=== PATIENT | female | born 1975 | race Caucasian/White ===

== ENCOUNTER 2021-11-28 14:26 | Outpatient (CLI) | payer OTHER, SELFPAY | END 2021-11-28 14:27 | disposition home or self-care (01) | LOC: LKVREF 14:34 | PROVIDERS: PCP Emergency Medicine; Visit Provider Physician Assistant Medical | DX: N92.6 Irregular menstruation, unspecified (principal); R51.9 Headache, unspecified | CPT/HCPCS: 84443 ==

== ENCOUNTER 2021-11-30 12:48 | Outpatient (CLI) | payer OTHER, SELFPAY ==
--- NOTE | 2021-11-30 13:00 | CRLHL7_ITS ---
For Patients: As a result of the Century Cures Act, medical imaging exams and procedure reports are released immediately into your electronic medical record. You may view this report before your referring provider. If you have questions, please contact your health care provider. INDICATION: S/P ENDO ABLATION [id number], NOW HEAVY VAGINAL BLEEDING COMPARISON: none TECHNIQUE: 2D mars scale and color Doppler images were acquired of the pelvis using a transabdominal and transvaginal approach. FINDINGS: Sonographic images demonstrate a normal size and smooth outer contour of the uterus. Uterus measures 10.4 cm in length by 5.7 cm in AP diameter by 5.1 cm in transverse dimension. The myometrium has a heterogeneous echotexture. 2 centimeter cervical nabothian cyst is present. Anterior intramural leiomyoma noted measuring 1.6 x 1.2 x 1.5 cm. The endometrial lining appears heterogeneous and measures 6 mm in composite thickness. The right ovary measures 3.0 x 2.1 x 2.1 cm in size and the left ovary measures 3.2 x 1.8 x 1.9 cm. The ovaries demonstrate normal arterial and venous blood flow on color Doppler analysis. There are no suspicious fluid collections within the cul-de-sac. Incidental simple cyst left ovary measuring 1.6 x 1.2 x 1.4 cm. IMPRESSION: Endometrial thickness 6 millimeters. Endometrial morphology is slightly heterogeneous. No endometrial fluid. Small anterior intramural fibroid measuring 1.6 cm. Dictated by Porter Short MD @ 11/30/2021 3:52:27 PM (Electronically Signed)
== END 2021-11-30 12:49 | disposition home or self-care (01) ==
LOC: US 12:49
PROVIDERS: PCP Emergency Medicine; Visit Provider Physician Assistant Medical
DX: N93.9 Abnormal uterine and vaginal bleeding, unspecified (principal); R93.89 Abnormal findings on diagnostic imaging of other specified body structures; D25.1 Intramural leiomyoma of uterus
CPT/HCPCS: 76830; 76856

== ENCOUNTER 2021-12-09 09:34 | Outpatient (CLI) | payer OTHER, SELFPAY ==
[2021-12-09 11:05] LABS: Creatinine* 0.7 mg/dL (0.5-1.5); Estimated Glomerular Filt Rate 107 ml/min
[2021-12-09 11:06] LABS: Alanine Aminotransferase* 80 U/L (4-35); Aspartate Amino Transferase* 66 U/L (12-35); Blood Urea Nitrogen* 14 mg/dL (5-24); Uric Acid* 5.5 mg/dL (2.2-8.4)
[2021-12-10 18:34] LABS: Follicle Stimulating Hormone 37.3 IU/L
== END 2021-12-09 09:35 | disposition home or self-care (01) ==
PROVIDERS: PCP Emergency Medicine; Visit Provider Obstetrics & Gynecology
DX: N93.9 Abnormal uterine and vaginal bleeding, unspecified (principal); R94.5 Abnormal results of liver function studies; R79.89 Other specified abnormal findings of blood chemistry; N89.8 Other specified noninflammatory disorders of vagina
CPT/HCPCS: 82565; 83001; 84450; 84460; 84520; 84550

== ENCOUNTER 2022-01-31 08:35 | Outpatient (CLI) | payer OTHER, SELFPAY ==
[2022-01-31 13:52] LABS: Albumin* 4.5 g/dL (3.3-5.0)
[2022-01-31 13:55] LABS: Aspartate Amino Transferase* 29 U/L (12-35); Bilirubin Direct* 0.3 mg/dL (0.0-0.5); Bilirubin Total* 0.8 mg/dL (0.1-1.5); Total Protein* 7.2 g/dL (6.0-8.3)
[2022-01-31 13:56] LABS: Alanine Aminotransferase* 39 U/L (4-35); Alkaline Phosphatase* 68 U/L (40-150)
== END 2022-01-31 08:36 | disposition home or self-care (01) ==
LOC: LKVREF 08:37
PROVIDERS: PCP Emergency Medicine; Visit Provider Family Medicine
DX: Z01.818 Encounter for other preprocedural examination (principal); E55.9 Vitamin D deficiency, unspecified; R79.89 Other specified abnormal findings of blood chemistry
CPT/HCPCS: 80076

== ENCOUNTER 2022-02-09 06:53 | Day surgery (SDC) | payer OTHER, SELFPAY ==
[2022-02-09] VITALS (26 sets, daily range): BP systolic 106–126; BP diastolic 62–85; PULSE 70–86; RESP 16; TEMP 36.2–36.6; O2SAT 85–100; BMI 25.5
[2022-02-09 07:15] LABS: Ur HCG Qualitative* Negative (Negative)
[2022-02-09] MEDS: SODIUM CHLORIDE 0.9 % (FLUSH) 10 ML SYRINGE IVF (07:30)
[2022-02-09] MEDS: LACTATED RINGERS 1000 ML 1,000 ML 100 ML IV (07:30)
--- NOTE | 2022-02-09 07:43 | SUR.PREOP ---
LAB HERE TO DRAW TYPE & SCREEN.
[2022-02-09] MEDS: BUPIVACAINE 0.25% 30 ML INJECTION (10:23)
--- NOTE | 2022-02-09 11:10 | W.ANESCHARGE ---
Anesthesia Charges Start Date/Time Anesthesia Start Date: 02/09/22 Anesthesia Start Time: 08:32 Stop Date/Time Anesthesia Stop Date: 02/09/22 Anesthesia Stop Time: 11:10 Summary Emergency: No
--- NOTE | 2022-02-09 11:17 | P.GYNPRC_ITS ---
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 On exam under anesthesia, cervix was normal in appearance, deviated anteriorly. Bimanual exam revealed retroverted and mobile uterus without any palpable adnexal masses. 2. Upon laparoscopy, survey of the upper abdomen revealed a normal appearance to the inferior edge of the liver, gallbladder and stomach. Bowels were grossly normal appearance, as was the appendix. Survey of the pelvis revealed the uterus to be retroverted. There was a perforation site from the hysteroscopy, performed prior to laparoscopy, noted along the right lower uterine segment. There was filmy scarring from this area to the right pelvic sidewall. There was filmy scarring encompassing the left fallopian tube, attached to the left pelvic sidewall, and the tube was dilated throughout. The right fallopian tube was similarly dilated throughout its length. There were subcentimeter paratubal cysts on either side. Ovaries were normal appearance bilaterally. There was minimal scarring of the bladder reflection. normal appearance to the uterus. Bilateral tubes and ovaries were normal in appearance. COMPLICATIONS: Uterine perforation during hysteroscopy and attempt at visual D&C, leading to cessation of hysteroscopy. Unable to visualize the endometrial cavity. Sharp uterine curettage performed under laparoscopic guidance. PROCEDURE IN DETAIL: Patient was taken to the operating room with IV running. She was positioned in dorsal lithotomy position with her legs fully supported in Yellofin stirrups. Monitored anesthesia care was administered. She was prepped and draped in the usual sterile fashion. Exam under anesthesia was performed for the above-noted findings. Banks catheter was inserted. Speculum was inserted. Cervix visualized and grasped along the anterior lip with a single-tooth tenaculum. Cervix was serially dilated to accommodate the TRUCLEAR hysteroscope. This was assembled with saline inflow and outflow in place. The line was flushed of bubbles. The hysteroscope was advanced through the cervix. I was unable to get past the upper endocervix / lower endometrial cavity with the hysteroscope. The soft tissue morcellator was then inserted through the operating channel. Window lock was performed. Under direct visualization, the visualized portions of the lower endometrial cavity / upper endocervix were visually curetted with the tissue morcellator. Further search for the endometrial cavity with the hysteroscope was not fruitful, and ultimately resulted in a perforation in the right posterior uterine segment. This occurred with the hysteroscope and not with the blade. Hysteroscopy was then abandoned. A [employer] uterine manipulator was placed along the posterior lip of the cervix. Speculum was removed. Patient's legs were placed in neutral position. Attention was turned to patient's abdomen. The infraumbilical area was infiltrated with small amount of Marcaine. An infraumbilical incision was made with a scalpel and carried through to the underlying layer of fascia with a hemostat. The 5 mm Fios Kii trocar was assembled with laparoscope within, and insufflator attached. While tenting up the abdomen manually, the trocar was passed through the anterior abdominal wall into the peritoneal cavity. Trocar was removed. Pneumoperitoneum was achieved. Survey of abdomen and pelvis revealed the above-noted findings. Three additional port sites were created. The 1st was in the patient's left lower quadrant, just superior medial to the left ASIS. The 2nd was a hand's breath superior to and slightly medial to the 1st. The 3rd was in the patient's right lower quadrant, just superior medial to the right ASIS. Each was infiltrated with small amount of Marcaine prior to incision. An 11 mm incision was made at the LLQ port site, and a 5 mm incision was made at the other two sites, first making sure the large vessels were out of harm's way. An 11 mm Fios Kii port was inserted at the LLQ port site, and a 5 mm port at the other two sites, each under direct visualization and without complication. The ball oon on each of the 4 ports was inflated, holding each in place. Survey of the upper abdomen and pelvis was performed for the above-noted findings. First, the site of perforation on the posterior right uterus was observed by manually anteverting the extremely retroverted uterus. It was found to be hemostatic. The left fallopian tube was grasped at its fimbriated edge. The left ovary was held away from the left pelvic sidewall. The infundibulopelvic ligament was cauterized and transected with the Thunderbeat device. The fimbriated edge of the left fallopian tube was held away from the left pelvic sidewall and the adhesions there were divided with the Thunderbeat device. Filmy adhesions were dissected away from the pelvic sidewall, mobilizing the left tube. The tube was found to be thickened with abundant vascular supply. The left fallopian tube was divided at the left cornua, and dissection was then carried medially to laterally, meeting up with where it was begun. The left utero-ovarian ligament was also divided, and the specimen was freed from its attachments and placed in the pelvis for later retrieval. Hemostasis of the dissection bed was noted. Attention was then turned to the right tube and ovary. These were held away from the right pelvic sidewall, and the infundibulopelvic ligament was cauterized and transected. Dissection was carried through the broad ligament, initially moving laterally to medially. The right tube and right utero-ovarian ligament were divided with a Thunderbeat at the cornua, and the specimen was then freed from its attachments and placed in the pelvis. Hemostasis was noted. An Endo-Catch bag was inserted through the left lower quadrant port site. Each of the specimens was placed in this bag. The bag was cinched closed. Holding the bag up the anterior abdominal wall, the port was removed. The specimens were removed piecemeal from the bag and sent to pathology. The 11 mm port was again placed. The posterior fundus of the uterus was grasped with a laparoscopic tenaculum and held in neutral position. Patient's legs were placed back in lithotomy position. Speculum was inserted. Cervix visualized and grasped with a single- tooth tenaculum. Under laparoscopic guidance, the cervix was further dilated with Hegar dilators. Sharp curettage was then performed circumferentially and sent to pathology. Tenaculum was removed from the cervix and acceptable hemostasis was noted. Patient's legs were placed back in a neutral position. Attention was returned to the abdomen. David hemostatic agent was applied to the dissection along the left infundibulopelvic ligament and along the perforation site at the posterior uterus. Both exhibited hemostasis. The balloon of the left lower quadrant port site was deflated and the port was removed. Colin-Shannon device was used to close the fascia of the left lower quadrant port site with a single stitch of 0 Vicryl. The balloons of all remaining port sites were deflated. All laparoscopic instruments were removed. Pneumoperitoneum was released and the ports were then removed. Bovie was used on bleeding vessels in the subcutaneous tissue at each port site. The skin was then closed with subcuticular stitch of 4-0 Monocryl. Surgical glue was applied above this. Patient tolerated procedure well. She was taken to recovery area in stable condition.
[2022-02-09] MEDS: fentaNYL 100 MCG/2 ML inj 50 MCG IVP ×2 (11:28→11:43)
[2022-02-09] MEDS: MEPERIDINE 25 MG/ML INJ 12.5 MG IVP (11:34)
[2022-02-09] MEDS: LACTATED RINGERS 1000 ML 1,000 ML 35 ML IV (11:42)
--- NOTE | 2022-02-09 11:45 | W.ANESCHARGE ---
Anesthesia Charges Start Date/Time Anesthesia Start Date: 02/09/22 Anesthesia Start Time: 08:32 Stop Date/Time Anesthesia Stop Date: 02/09/22 Anesthesia Stop Time: 11:10 Summary Emergency: No
[2022-02-09] MEDS: KETOROLAC 30 MG/ML inj IVP (12:16)
[2022-02-09] MEDS: ONDANSETRON 2 MG/ML inj 4 MG IVP (12:58)
== END 2022-02-09 13:09 | disposition home or self-care (01) ==
PROVIDERS: PCP Emergency Medicine; Visit Provider Obstetrics & Gynecology
PROC: 0UDB8ZZ Extraction of Endometrium, Via Natural or Artificial Opening Endoscopic (ICD-10-PCS; CPT 58558; principal; 2022-02-09 08:15)
PROC: (CPT 58661; 2022-02-09 08:15)
DX: N95.0 Postmenopausal bleeding (principal); Z80.41 Family history of malignant neoplasm of ovary; N83.8 Other noninflammatory disorders of ovary, fallopian tube and broad ligament; N85.4 Malposition of uterus; N99.71 Accidental puncture and laceration of a genitourinary system organ or structure during a genitourinary system procedure
CPT/HCPCS: 58661; 58558; 00840; 00860; 00952; 36415; 81025; 86850; 86900; 86901; 88305; 88307; J1100; J1170; J1885; J2175; J2250; J2405; J2704; J3010; J3490; J7120

== ENCOUNTER 2022-10-19 10:35 | Outpatient (CLI) | payer OTHER, SELFPAY | END 2022-10-19 10:36 | disposition home or self-care (01) | PROVIDERS: PCP Family Medicine; Visit Provider Family Medicine | DX: E78.5 Hyperlipidemia, unspecified (principal); E55.9 Vitamin D deficiency, unspecified; R79.89 Other specified abnormal findings of blood chemistry; R51.9 Headache, unspecified; E07.9 Disorder of thyroid, unspecified; N93.9 Abnormal uterine and vaginal bleeding, unspecified | CPT/HCPCS: 80061; 82607; 82671; 83001; 83002; 84443 ==

== ENCOUNTER 2023-02-06 13:12 | Outpatient (CLI) | payer OTHER, SELFPAY ==
--- OUTSIDE RECORDS SUMMARY | 2023-02-08 06:14 | XMS_ITS | Continuity of Care Document ---
Author Name Unknown Organization [facility] Address [address] [address] [place] [address] Phone Care Team Providers Care Finish Off Operator Name Role Phone Thoke FLORES Olvinefraín Fang Unavailab le Allergies, Adverse Reactions, Alerts Substance Reaction Status Criticality metronidazole Active No Information Medications Medication Instructions Dosage Effective Dates (start - stop) Status Comments PROBIOTIC (unknown strength) take 1 tablet by oral route every day Not Available - Active LORAZEPAM (unknown strength) take 1 tablet by oral route 3 times every day as needed as needed Not Available - Active Herbal Medications/Supplem ents unknown Good Zymes - Active simvastatin 20 mg tablet take 1 tablet by ORAL route every day in the evening 20 MG - Active docusate sodium 100 mg capsule take 1 Capsule by ORAL route every day as needed 100 MG - Active lactobacillus acidophilus capsule take 1 Capsule by Oral route every day 1 Capsule - No Longer Active iron 325 mg (65 mg iron) tablet take 1 Tablet by Oral route every day 1 Tablet - No Longer Active Vitamin unknown - No Longer Active Procedures Procedure Date Colonoscopy Flex; Dx (dec Pro) 20 Routine Serum Collection Colonoscopy Flex; W/remov Les- 15 Colonoscopy Flex; W/bx 1/mx Ugi Endo; W/bx 1/mx Level Iv-surg Path Gross/micro 15 Advance Directives Directive Yes / No Effective Date File Name No Information Encounters Encounter Description Practice Location Reason(s) For Visit Diagnoses Date Provider Providers Copied on Encounter [facility], [address] [address], [place], [place], [id number], [place] tel:[phone] [facility] No Information 0 Joey Bah. [address] [facility], [facility] [address], [place], [address], [place]. tel:[phone] [facility], [address] [address], [place], [address], [place] tel:[phone] [facility] Screening ColonoscopyPer lauren history of colonic polyps 0 No Information Referring Provider: Referral Self. [facility], [address] [address], [place], [place], [address], [place] tel:[phone] [facility] No Information 0 Kvng Bartlett. [address] [facility], [facility] [address], [place], [address], [place]. tel:[phone] [facility], [address] [address], [place], [place], [address], [place] tel:[phone] [facility] Rectal Polyp/BenignBe nign neoplasm of anus and anal canal Apr-0 7-201 5 Erin Buenrostro. [address] [facility], [facility] [address], [place], [address], [place]. tel:[phone] [facility], [address] [address], [place], [place], [address], [place] tel:[phone] [facility] No Information Apr-0 2-201 5 Erin Buenrostro. [address] [facility], [facility] [address], [place], [address], [place]. tel:[phone] Referring Provider: Rl Keith, [facility] [place], [address]. tel:[phone] [facility], [address] [address], [place], [address], [place] tel:[phone] [facility] Anemia, Iron Deficiency Jun-3 1 5 Erin Buenrostro. [address] [facility], [facility] [address], [place], [address], [place]. tel:[phone] [facility], [address] [address], [facility] [place], [address], [place] tel:[phone] [facility] Iron deficiency anemiaAnemia, Iron DeficiencyRect al Polyp/BenignPr octosigmoiditi s/melanosis Colilymphocyto sisAnemia, Iron Deficiency Mar-3 0 5 Erin Buenrostro. [address] [facility] [address], [place], [address], [place]. tel:[phone] Referring Provider: Rl Keith, [address] [place] [address], [address]. tel:[phone] [facility], [address] [address], [facility] [place], [address], [place] tel:[phone] [facility] External Referral Jun-2 5 Aurelio Wells. [address], [id number], [place]. tel:[phone] Referring Provider: Rl Keith, [facility] [place], [address]. tel:[phone] Family History Family Member Type Diagnosis Age At Onset Sister Problem (finding) malignant neoplasm of o vary Mother Problem (finding) Alive and well Sister Problem (finding) Alive and well Father Problem (finding) ulcer Father Problem (finding) Alive and well Son Problem (finding) Alive and well Mother Problem (finding) reflux Father Problem (finding) alcoholism Immunizations Vaccine Date Status Comments Novel [id number], all formulations administered Note: [facility] bi-direct ional interface ; Source: Other Registry Influenza, seasonal, injecta ble, preservative free administered Note: [facility] bi-direct ional interface ; Source: Other Registry tetanus toxoid, reduced diphtheria toxoid, and acellular pertussis vaccine, adsorbed administered Note: [facility] b i-directional interface ; Source: Other Registry Influenza, seasonal, injectable administe red Note: [facility] bi- directional interface ; Source: Other Registry Influenza, seasonal, injecta ble, preservative free administered Note: [facility] bi-direct ional interface ; Source: Other Registry Payers Payer name Insurance type Covered green party ID Authoriza tion(s) No Information Social History Type Description Quantity Date Captured Comments Sex Female Smoking Status No Information Chief Complaint And Reason For Visit No Information Reason For Referral Reason For Referral No Information History Of Present Illness Encounter Date Complaint History Of Prese nt Illness No Information Functional Status Date Functional Assessmen t No Information Instructions Date Instruction Additional Infor leodan Colon Cancer Prevention Related to Screening Colonoscopy Colon Cancer Prevention Related to Iron deficiency anemia Colon Polyps Related to Iron deficiency anemia Assessments Type Assessment Date No Information Patient Care Teams Name Effective Dates (start - stop) Status Members No Information
--- OUTSIDE RECORDS SUMMARY | 2023-02-08 06:15 | XMS_ITS | Continuity of Care Document ---
Author Name Unknown Organization [facility] Address [address] [place] [address] Phone Care Team Providers Care Meat Clerk Name Role Phone Bradly Bansal MD Unavailable Unavailable Advance Directives Directive Yes / No Effective Date File Name No Information Encounters Encounter Description Practice Location Reason(s) For Visit Diagnoses Date Provider Providers Copied on Encounter [facility], [address], [place], [address], [place] tel:[phone] [facility], No Information Rolf Abdullahi. [facility] [address], [place], [address], [place]. tel:[phone] Family History Family Member Type Diagnosis Age At Onset No Information Payers Payer name Insurance type Covered libertarian ID Authoriza tion(s) No Information Social History Type Description Quantity Date Captured Comments Alcohol Use Details Unknown Caffeine Use Details Unknown Tobacco Use Status No Information Smoking Status No Information Sex Female Chief Complaint And Reason For Visit No Information Reason For Referral Reason For Referral No Information Plan Of Treatment Date Type Action Status Appointment Liset Cool BOOKED History Of Present Illness Encounter Date Complaint History Of Prese nt Illness No Information Functional Status Date Functional Assessmen t No Information Instructions Date Instruction Additional Infor mation No Information Assessments Type Assessment Date No Information Patient Care Teams Name Effective Dates (start - stop) Status Members No Information
--- OUTSIDE RECORDS SUMMARY | 2023-02-08 06:15 | XMS_ITS | Patient Health Record ---
Author Name Unknown Organization [facility] Address [address] [id number] Care Team Providers Care Brush Clearing Laborer Name Role Phone Nathaniel Limon MD Primary Care Provider ALLERGIES Allergen (clinical drug ingredient) Drug/Non Drug Allergy documented on EMR Reaction Allergy Type Onset Date Status metronidazole Flagyl hives Drug Allergy Act juan REASON FOR REFERRAL No Information MEDICATIONS Medication SIG (Take, Route, Frequency, Duration) Notes Start Date End Date Status Ativan 0.5 MG tid as needed Active zzz(CUSTOM Rx) ONE A DAY VITAMIN *please review for potential update for e-prescription and drug interaction check* Active Colace 100 MG 1 cap(s) orally once a day, as needed as needed Active Probiotic Formula 1-250 BILLION-MG 1 cap(s) orally once a day Active Simvastatin 20 MG 1 tab(s) orally once a day (at bedtime) Active Albuterol Sulfate HFA 108 (90 Base) MCG/ACT 2 puff(s) inhaled 4 times a day as needed for 25 Active SOCIAL HISTORY Tobacco Use: Social History Observation Description Date Details (start date - stop date) Never Smoker NA - NA Sex Assigned At : Social History Observation Description Sex Assigned At Unknown Tobacco Status Question Answer Notes I am: never smoker PROBLEMS Problem Type ICD Code Onset Dates Problem Status W/U Status Risk SNOMED Code Notes Problem Anxiety (F41.9) Active confirmed 066711 02 Problem Mixed hyperlipidemia (E78.2) Active confirmed 764681178 Problem Major depressive disorder, recurrent episode, moderate (F33.1) Active confirmed 822065360 Problem History of hyperglycemia (Z86.39) Active confirmed 553928189 Problem Muscle twitching (R25.3) Active confirmed 87336879 Problem Severe major depression (F32.2) Active confirmed 830926042 Problem History of cardiac arrhythmia (Z86.79) Active confirmed 889543783 PLAN OF TREATMENT No Information Insurance Providers Payer Name Payer Address Payer Phone Subscriber Number Group Number Insured Name Patient Relationship to Insured Coverage Start Date Coverage End Date [employer] [address] [place] [address] [id number] Liset Cool Self - patient is the insured 4 MEDICAL (GENERAL) HISTORY Medical History History ICD Code DOFV 10-21-83 Gestational diabetes Surgical History Surgery Date(Month/Year) Right patellar hardware removal 04/2005 D&C (after miscarriage) 10/2004 Right patellar fracture 03/2003 , tubial with last C section 2006.2008 Bilat otoplasty 1997 SVT ablation 2015 Uterine ablation 06/2014 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
== END 2023-02-06 13:13 | disposition home or self-care (01) ==
LOC: NFLDREF 02-08 06:12
PROVIDERS: PCP Family Medicine; Referring Provider Family Medicine; Visit Provider Family Medicine
DX: E78.5 Hyperlipidemia, unspecified (principal); R73.03 Prediabetes
CPT/HCPCS: 80061; 80076

== ENCOUNTER 2023-11-10 11:43 | Outpatient (CLI) | payer OTHER, SELFPAY | END 2023-11-10 11:44 | disposition home or self-care (01) | PROVIDERS: PCP Family Medicine; Visit Provider Family Medicine | DX: R21 Rash and other nonspecific skin eruption (principal); R07.9 Chest pain, unspecified; R79.89 Other specified abnormal findings of blood chemistry | CPT/HCPCS: 84443; 86039 ==

== ENCOUNTER 2024-01-21 13:15 | Outpatient (CLI) | payer OTHER, SELFPAY ==
--- OUTSIDE RECORDS SUMMARY | 2024-01-21 13:19 | XMS_ITS | Continuity of Care Document ---
Author Organization [facility] Address [address] [place] [address] Phone Care Team Providers Care Industrial Education Teacher Name Role Phone Issac Guaman DO Unavailable Unavailable Allergies, Adverse Reactions, Alerts Substance Reaction Status Criticality metronidazole Active No Information Medications Medication Instructions Dosage Effective Dates (start - stop) Status Comments rosuvastatin 20 mg tablet take 1 tablet by oral route every day 20 MG - Active FISH OIL (unknown strength) take 1 Tablet by Oral route every day Not Available - Active MAGNESIUM (unknown strength) take 1 tablet by oral route every day Not Available - Active Colace 100 mg capsule take 1 capsule by oral route every day at bedtime as needed 100 MG - Active ALPHA LIPOIC ACID (unknown strength) Not Available - Active VITAMIN B-1 (unknown strength) Not Available - Active Miscellaneous ORAL TABLET Juvenon Nitric Oxide - Active Procedures Procedure Date Office/Outpatient Visit, New Routine Venipuncture Specimen Handling Rbc Sed Rate, Automated Assay Of Ck (Cpk) CReactive Protein Antinuclear Antibodies Complete Cbc WAuto Diff Wbc Results Test Name Date and Time Measure Units Reference Range Abnormal Flag Status Comments Panel Description: ESR Final ESR 10:57:00 10 mm/hr 0-20 Final Panel Description: CPK Final CK 11:16:00 87 U/L 26-140 Final Panel Description: CBC 5 part diff Final Neutrophils# 11:29:00 2.46 K/uL 2.00-7.50 Final Neutrophil % Oct-03-31 11:29:00 52.20 % 0.00-99.00 Final Eosinophil # Jan03-31 023 11:29:00 0.19 K/uL 0.00-0.50 Final Eosinophil % Jan03-31 023 11:29:00 4.00 % 0.00-7.00 Final Basophil # Jan03-31 11:29:00 0.03 K/uL 0.00-0.20 Final Basophil % Jan03-31 11:29:00 0.60 % 0.00-99.00 Final WBC Jan-03-31 11:29:00 4.7 K/uL 4.0-10.0 Final RBC Jan-03-31 11:29:00 4.98 M/uL 3.80-5.80 Final Hemoglobin Jan03-31 11:29:00 15.2 g/dL 11.5-16.0 Final Hematocrit Jan03-31 11:29:00 45.2 % 37.0-47.0 Final MCV Jan03-31 11:29:00 91 fL 80-100 Final MCH Jan03-31 11:29:00 30.6 pg 27.0-32.0 Final MCHC Jan03-31 11:29:00 33.7 g/dL 32.0-36.0 Final RDW Jan03-31 11:29:00 11.6 % 11.0-16.0 Final Platelet Count Jan03-31 11:29:00 272 K/uL 150-500 Final MPV Jan03-31 11:29:00 6.9 fL 6.0-11.0 Final Lymphocyte% Jan03-31 11:29:00 35.70 % 25.00-50.00 Final Lymphocyte # [facility]03-31 11:29:00 1.7 K/uL 1.0-4.0 Final Monocytes # [facility]03-31 11:29:00 0.35 K/uL 0.20-1.00 Final Monocytes % Jan03-31 11:29:00 7.50 % 2.00-10.00 Final Panel Description: CRP Final CRP Jan-03-31 11:44:00 0.04 MG/DL 0.00-0.60 Final LOW=Actual Res ult is BELOW Linearity of Analyzer Panel Description: COMPREHENSIVE METABOLIC PANEL Final GLUCOSE Jan-13-2 023 11:39:00 111 mg/dL 65-99 H Final Fasting refere nce interval For someone without known diabetes, a glucose valuebetween 100 and 125 mg/dL is consistent withprediabetes and should be confirmed with afollow-up test. UREA NITROGEN (BUN) Jan-13-2 023 11:39:00 14 mg/dL 7-25 N Final CREATININE Jan-13-2 023 11:39:00 0.63 mg/dL 0.50-0.99 N Final EGFR Jan-13-2 11:39:00 109 mL/min/ 1.73m2 > OR = 60 N Final BUN/CREATININE RATIO Jan-13-2 023 11:39:00 SEE NOTE: (calc) 6-22 Final Not Reported: BUN and Creatinine are within reference range. SODIUM Jan-13-2 11:39:00 141 mmol/L 135-146 N Final POTASSIUM Jan-13-2 023 11:39:00 4.3 mmol/L 3.5-5.3 N Final CHLORIDE Oct-13-2 023 11:39:00 105 mmol/L 98-110 N Final CARBON DIOXIDE Jan-13-2 11:39:00 21 mmol/L 20-32 N Final CALCIUM Jan-13-2 023 11:39:00 9.6 mg/dL 8.6-10.2 N Final PROTEIN, TOTAL Jan--2 11:39:00 7.5 g/dL 6.1-8.1 N Final ALBUMIN Jan-13-2 023 11:39:00 4.7 g/dL 3.6-5.1 N Final GLOBULIN Jan-13-2 023 11:39:00 2.8 g/dL (calc) 1.9-3.7 N Final ALBUMIN/GLOBULIN RATIO Jan-13-2 023 11:39:00 1.7 (calc) 1.0-2.5 N Final BILIRUBIN, TOTAL Jan--2 023 11:39:00 0.6 mg/dL 0.2-1.2 N Final ALKALINE PHOSPHATASE Jan-13-2 11:39:00 100 U/L 31-125 N Final AST Jan-13-2 023 11:39:00 24 U/L 10-35 N Final ALT 11:39:00 32 U/L 6-29 H Final Panel Description: HEPATITIS C AB W/REFL TO HCV RNA, QN, PCR Final HEPATITIS C ANTIBODY 11:39:00 NON-REACT RJ NON-REACTIV E N Final HCV antibody was non-reactive. There is no laboratory evidence of HCV infection. In most cases, no further action is required. However,if recent HCV exposure is suspected, a test for HCV RNA(test code 66743) is suggested. For additional information please refer tohttp://educatio nRegeneca Worldwidediagnostic ChoicePass/faq/MTS77a3 (This link is being provided for informational/edu cational purposes only.) Panel Description: TSH Final TSH 11:39:00 1.01 mIU/L N Final Reference Rang e > or = 20 Years 0.40-4.50 Ranges First trimester 0.26-2.66 Second trimester 0.55-2.73 Third trimester 0.43-2.91 Panel Description: COMPLEMENT COMPONENT C3C Fin al COMPLEMENT COMPONENT C3C 22:43:00 159 mg/dL 83-193 N Final Panel Description: COMPLEMENT COMPONENT C4C Fin al COMPLEMENT COMPONENT C4C 22:43:00 33 mg/dL 15-57 N Final Panel Description: ALDOLASE Final ALDOLASE 22:43:00 5.5 U/L < OR = 8.1 N Final Panel Description: LUIS Screen Final LUIS SCR A 14:01:00 2.0 U/mL 0.0-10.0 Final LUIS SCR B 14:01:00 5.0 U/mL 0.0-10.0 N Final Panel Description: COMPREHENSIVE METABOLIC PANEL Final GLUCOSE 11:39:00 111 mg/dL 65-99 H Final Fasting refere nce interval For someone without known diabetes, a glucose valuebetween 100 and 125 mg/dL is consistent withprediabetes and should be confirmed with afollow-up test. UREA NITROGEN (BUN) Jan- 11:39:00 14 mg/dL 7-25 N Final CREATININE Jan- 11:39:00 0.63 mg/dL 0.50-0.99 N Final EGFR Jan--2 11:39:00 109 mL/min/ 1.73m2 > OR = 60 N Final BUN/CREATININE RATIO Jan-- 11:39:00 SEE NOTE: (calc) 6-22 Final Not Reported: BUN and Creatinine are within reference range. SODIUM Jan-- 11:39:00 141 mmol/L 135-146 N Final POTASSIUM Jan-- 11:39:00 4.3 mmol/L 3.5-5.3 N Final CHLORIDE Jan-13-2 11:39:00 105 mmol/L 98-110 N Final CARBON DIOXIDE Jan-- 11:39:00 21 mmol/L 20-32 N Final CALCIUM Jan-- 11:39:00 9.6 mg/dL 8.6-10.2 N Final PROTEIN, TOTAL Jan- 11:39:00 7.5 g/dL 6.1-8.1 N Final ALBUMIN Jan-- 11:39:00 4.7 g/dL 3.6-5.1 N Final GLOBULIN Jan-13-2 11:39:00 2.8 g/dL (calc) 1.9-3.7 N Final ALBUMIN/GLOBULIN RATIO Jan-- 11:39:00 1.7 (calc) 1.0-2.5 N Final BILIRUBIN, TOTAL Jan- 11:39:00 0.6 mg/dL 0.2-1.2 N Final ALKALINE PHOSPHATASE Jan- 11:39:00 100 U/L 31-125 N Final AST Jan-- 11:39:00 24 U/L 10-35 N Final ALT Jan-13- 11:39:00 32 U/L 6-29 H Final Panel Description: HEPATITIS C AB W/REFL TO HCV RNA, QN, PCR Final HEPATITIS C ANTIBODY Jan- 11:39:00 NON-REACT RJ NON-REACTIV E N Final HCV antibody was non-reactive. There is no laboratory evidence of HCV infection. In most cases, no further action is required. However,if recent HCV exposure is suspected, a test for HCV RNA(test code 69553) is suggested. For additional information please refer tohttp://educatio nCloudy Days/faq/CQS67r8 (This link is being provided for informational/edu cational purposes only.) Panel Description: TSH Final TSH 11:39:00 1.01 mIU/L N Final Reference Rang e > or = 20 Years 0.40-4.50 Ranges First trimester 0.26-2.66 Second trimester 0.55-2.73 Third trimester 0.43-2.91 Panel Description: ESR Final ESR 10:57:00 10 mm/hr 0-20 Final Panel Description: LUIS Screen Final LUIS SCR A 14:01:00 2.0 U/mL 0.0-10.0 Final LUIS SCR B 14:01:00 5.0 U/mL 0.0-10.0 N Final Panel Description: CPK Final CK 11:16:00 87 U/L 26-140 Final Panel Description: CRP Final CRP 11:44:00 0.04 MG/DL 0.00-0.60 Final LOW=Actual Res ult is BELOW Linearity of Analyzer Panel Description: CBC 5 part diff Final Neutrophils# 11:29:00 2.46 K/uL 2.00-7.50 Final Neutrophil % 11:29:00 52.20 % 0.00-99.00 Final Eosinophil # 11:29:00 0.19 K/uL 0.00-0.50 Final Eosinophil % 11:29:00 4.00 % 0.00-7.00 Final Basophil # 11:29:00 0.03 K/uL 0.00-0.20 Final Basophil % 11:29:00 0.60 % 0.00-99.00 Final WBC 11:29:00 4.7 K/uL 4.0-10.0 Final RBC 11:29:00 4.98 M/uL 3.80-5.80 Final Hemoglobin 11:29:00 15.2 g/dL 11.5-16.0 Final Hematocrit 11:29:00 45.2 % 37.0-47.0 Final MCV 11:29:00 91 fL 80-100 Final MCH 11:29:00 30.6 pg 27.0-32.0 Final MCHC 11:29:00 33.7 g/dL 32.0-36.0 Final RDW 11:29:00 11.6 % 11.0-16.0 Final Platelet Count 11:29:00 272 K/uL 150-500 Final MPV 11:29:00 6.9 fL 6.0-11.0 Final Lymphocyte% 11:29:00 35.70 % 25.00-50.00 Final Lymphocyte # 11:29:00 1.7 K/uL 1.0-4.0 Final Monocytes # 023 11:29:00 0.35 K/uL 0.20-1.00 Final Monocytes % 11:29:00 7.50 % 2.00-10.00 Final Advance Directives Directive Yes / No Effective Date File Name No Information Encounters Encounter Description Practice Location Reason(s) For Visit Diagnoses Date Provider Providers Copied on Encounter Office/Outpa tient Visit, [facility] , [address], [place], [address], [place] tel:[phone] [facility] , Musculoskele jana pain (chief complaint) Raynaud's syndrome without gangreneGene ralized muscle weaknessAbno rmal immunologica l finding in serum, unspecifiedI diopathic neuropathyEn counter for screening for osteoporosis MyalgiaPain in joint 3 Deniz Davenport. [facility] [address], [place], [address], [place]. tel:[phone] Referring Provider: Issac Monae, [facility] [address], [place], [address]. tel:[phone] Family History Family Member Type Diagnosis Age At Onset No Information Payers Payer name Insurance type Covered libertarian ID Kathleen cortes(s) [employer] [id number] Social History Type Description Quantity Date Captured Comments Alcohol Use Details No Caffeine Use Details tea Tobacco Use Status Current non-smoker Smoking Status Never smoker Non-Smoking Tobacco Use Details : No Details Available : No Details Available Sex Female Vital Signs Date / Time: Height Weight BMI Pulse Rate Blood Pressure Temperature Respiratory Rate Body Surface Area Head Circumference Head Circ. Percentile Wt./Mario. Percentile BMI percentile Pulse Ox Inhaled Ox 8:54 AM 64.25 in 64.954 kg (143.20 lbs) 24.3 9 kg/m eter (2) 132/70 mm[Hg] 97.09 F Chief Complaint And Reason For Visit From encounter dated 02/08/2023 08:30'. Musculoskeletal pain (chief complaint) Reason For Referral Reason For Referral No Information History Of Present Illness Encounter Date Complaint History Of Prese nt Illness Musculoskeletal pain Functional Status Date Functional Assessmen t Pain Score 4/10 Instructions Date Instruction Additional Infor mation No Information Assessments Type Assessment Date assessment Raynaud's syndrome without gangr chris assessment Generalized muscle weakness assessment Abnormal immunological finding i n serum, unspecified assessment Idiopathic neuropathy assessment Encounter for screening for oste oporosis assessment Myalgia assessment Pain in joint Mental Status Date Cognitive Assessment Orientation - [place] ed to time, place, person, situation. Patient Care Teams Name Effective Dates (start - stop) Status Members No Information
--- OUTSIDE RECORDS SUMMARY | 2024-01-21 13:20 | XMS_ITS | Clinical Summary ---
Author Organization [facility] Address [address] [place] [address] Care Team Providers Care Campus Recruiting Coordinator Name Role Phone [facility] Primary Care Provider Allergies Active Allergy Reactions Criticality Noted Date Comments Metronidazole 11/07/2015 Medications Medication Sig Dispensed Refills Start Date End Date Status SIMVASTATIN PO Take 10 mg by mouth A ctive LORAZEPAM PO Take 0.5 mg by mouth every 4 hours as needed for anxiety Active PAROXETINE HCL PO Take by mouth daily Active lactobacillus rhamnosus, GG, (CULTURELL) capsule Take 1 capsule by mouth Active albuterol (PROAIR HFA/PROVENTIL HFA/VENTOLIN HFA) 108 (90 Base) MCG/ACT inhaler INHALE 2 PUFFS BY MOUTH 4 TIMES A DAY NEEDED 10/13/2019 Active Docusate Sodium (COLACE PO) Active triamcinolone (KENALOG) 0.1 % external creamIndications:Rash and nonspecific skin eruption Apply topically 2 times daily 30 g 12/23/2019 Active Active Problems No known active problems Immunizations Name Administration Dates Next Due TDAP Vaccine (Adacel) 12/23/2019 Social History Tobacco Use Types Packs/Day Years Used Date Smoking Tobacco: Never Smokeless Tobacco: Never Tobacco Cessation:Counseling Given: No Alcohol Use Standard Drinks/Week Comments No 0 (1 standard drink = 0.6 oz pur e alcohol) Adolescent Education Answer Date Record ed Getting School Help Needed Not on file 01/21 Sex and Gender Information Value Date Recorded Sex Assigned at Not on file Gender Identity Not on file Sexual Orientation Not on file Last Filed Vital Signs Vital Sign Reading Time Taken Comments Blood Pressure 108/72 02/16/2020 11:00 AM CDT Pulse 71 02/16/2020 11:00 AM CDT Temperature 36.7 ??C (98 ??F) 02/16/2020 8:26 AM CDT Respiratory Rate 20 02/16/2020 8:26 AM CDT Oxygen Saturation 95% 02/16/2020 11:00 AM CDT Inhaled Oxygen Concentration - - Weight 62.6 kg (138 lb) 07/11/2019 10:53 AM CDT Height - - Body Mass Index - - Plan of Treatment Not on file Care Teams Campus Recruiting Coordinator Relationship Specialty Start Date End Date Clinic - [facility] [address] [address] PCP - General Internal Medicine 07/11/19
--- OUTSIDE RECORDS SUMMARY | 2024-01-21 13:20 | XMS_ITS | Clinical Summary ---
Author Organization [facility] Address [place], [place] [address] Care Team Providers Care Lehr Operator Name Role Phone Wally Thompson MD Primary Care Provider [phone] Allergies Active Allergy Reactions Criticality Noted Date Comments Metronidazole Hcl 11/11/2008 rash Medications Medication Sig Dispensed Refills Start Date End Date Status LORazepam (ATIVAN) 0.5 mg tab Take 0.5 mg by mouth every 6 hours if needed for Anxiety. Active lactobacillus rhamnosus, GG, (CULTURELLE) 10 billion cell capsule Take 1 capsule by mouth 2 times daily. 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, without mention of thyrotoxic crisis or storm 05/30/2007 SVT (supraventricular tachycardia) Immunizations Name Administration Dates Next Due Influenza, IIV3 (Age >=3 years) 01/28/2015 Family History Relation Name Status Comments Father Alive A&W Mother Alive hypertension, h yperlipid Sister Alive Alive ovarian c ancer Social History Tobacco Use Types Packs/Day Years Used Date Smoking Tobacco: Never Smokeless Tobacco: Never Alcohol Use Standard Drinks/Week Comments No 0 (1 standard drink = 0.6 oz pur e alcohol) Sex and Gender Information Value Date Recorded Sex Assigned at Not on file Gender Identity Not on file Sexual Orientation Not on file Obstetrics History Para Term AB IAB SAB Ectopic Multiple Livin g Live Births 5 2 2 0 2 0 2 0 0 2 2 Date Outcome GA Total Labor Labor/2nd/3rd Weight Sex Type Anes PTL Alison A1 A5 Name Clin 09/10 Term 40w 0d C-Sec tion Living Caio 2004 SAB 2006 SAB 10/04 Term 40w 0d C-Sec tion Living Francisco Stokesida Last Filed Vital Signs Vital Sign Reading Time Taken Comments Blood Pressure 109/71 02/01/2020 5:00 PM CDT Pulse 78 02/01/2020 5:00 PM CDT Temperature 36.9 ??C (98.4 ??F) 02/01/2020 4:59 PM CD T Respiratory Rate 16 02/01/2020 4:59 PM CDT Oxygen Saturation 95% 02/01/2020 5:00 PM CDT Inhaled Oxygen Concentration - - Weight 71.2 kg (157 lb) 02/01/2020 4:59 PM CDT Height 162.6 cm (5' 4) 02/01/2020 4:59 PM CDT Body Mass Index 26.95 02/01/2020 4:59 PM CDT Plan of Treatment Health Maintenance Due Date Last Done Comments Tdap 1984 Depression screening for age 12+ 1985 HIV for age 15-65 1988 Hepatitis C screening for ag e 18-79 10/10/1991 Tetanus booster 1993 BMI (ht and wt on same day) for age 18+ 04/10/2018 04/10/2017, 11/16/2015 Colonoscopy through age 75 2018 Lipids for age 45-75 2018 Mammogram for age 45-75 2018 Pap test for age 21-65 03/12/2023 0, 03/12/2020 Zoster (shingles) series for age 50+ (1 of 2) 10/10/2023 COVID-19 vaccine series ( - 2022-24 season) 2023 Influenza for age 50-64 12/30/2023 01/28/2015 Pneumococcal series for age 6-64 Aged Out No longer eligible b ased on patient's age to complete this topic Procedures Procedure Name Priority Date/Time Associated Diagnosis Comments FACTORY MAINTENANCE MANAGER THIN PREP PAP SCREEN IMAGED Routine 03/12/2020 9:00 AM CHILLER HAND from Last 3 Months or Most Recently Relevant to Health Maintenance Results * FACTORY MAINTENANCE MANAGER THIN PREP PAP SCREEN IMAGED (03/12/2020 9:00 AM CHILLER HAND) Case Report Gynecologic Cytology Report ? Case: [id number] ? Authorizing Provider: ??Unknown, Doctor ?Collected: ? 03/12/2020 0900 ? Ordering Location: ? [facility] ?Received: ?03/12/2020 1708 ? First Screen: ?[place] ? Specimen: ?FACTORY MAINTENANCE MANAGER ThinPrep Vial Screening, Cervical/Vaginal ? 03/22/2020 3:39 PM CHILLER HAND [facility] INTERPRETATION/ RESULT NEGATIVE FOR INTRAEPITHELIAL LESION OR MALIGNANCY (NIL) (none) 03/22/2020 3:39 PM CHILLER HAND [facility] IMEN ADEQUACY Satisfactory for evaluation Endocervical component present 03/22/2020 3:39 PM CHILLER HAND [facility] HPV REQUEST HPV and PAP 03/22/2020 3:39 PM CHILLER HAND [facility] Menstrual Status Postmenopausal 03/22/2020 3:39 PM CHILLER HAND [facility] Additional Information 03/22/2020 3:39 PM CHILLER HAND [facility] Comment: Interpreted at [facility] - [address], [place] [address] Automated Review Successful 03/22/2020 3:39 PM CHILLER HAND [facility] Comment:Specimen processed s uccessfully by automated wire temperer device, ThinPrep Imaging System, [employer] ANCILLARY TESTING FACTORY MAINTENANCE MANAGER HPV Ordered, Please see separate report 03/22/2020 3:39 PM CHILLER HAND [facility] Note The pap test is a screening technique, not a diagnostic procedure. It is used primarily to screen for squamous cancers and precursor lesions. Published studies have shown that it is subject to both false negative and false positive results. The pap test should not be used as the sole means to diagnose or exclude pre-malignant and malignant lesions. 03/22/2020 3:39 PM CHILLER HAND [facility] Other (Cervical/Vagina l) 03/12/2020 9:00 AM CHILLER HAND 03/12/2020 5:08 PM CHILLER HAND Doctor Unknown PATHOLOGY/CYTOLOGY [facility] [address] [place] [address], from Last 3 Months or Most Recently Relevant to Health Maintenance Advance Directives * Full Code (Latest Code Status on File) Date Activated Date Inactivated Comments 01/18/2016 9:18 AM 01/19/2016 2:14 PM Care Teams Lehr Operator Relationship Specialty Start Date End Date Wally Thompson MD [address] [place] [address] PCP - General Family Practice 03/31/22
--- OUTSIDE RECORDS SUMMARY | 2024-01-21 13:20 | XMS_ITS | Referral Summary ---
Author Organization [place] Address [address] [place] [address] Care Team Providers Care Mortarman Name Role Phone [facility] Primary Care Provider Allergies Active Allergy Reactions [...] of Treatment Not on file Care Teams Mortarman Relationship Specialty Start Date End Date [facility] - [facility] [place] [address] [address] PCP - General Internal Medicine 07/11/19
== END 2024-01-21 13:16 | disposition home or self-care (01) ==
PROVIDERS: PCP Family Medicine; Visit Provider Family Medicine
DX: G62.9 Polyneuropathy, unspecified (principal); R51.9 Headache, unspecified; I73.00 Raynaud's syndrome without gangrene; M25.50 Pain in unspecified joint; R41.3 Other amnesia
CPT/HCPCS: 80053; 82607; 86140

== ENCOUNTER 2024-01-23 13:25 | Outpatient (CLI) | payer OTHER, SELFPAY ==
--- OUTSIDE RECORDS SUMMARY | 2024-01-23 13:31 | XMS_ITS | Clinical Summary ---
Author Organization [email or web address] [facility] Address [place], [place] [address] Care Team Providers Care Commercial Front Load Operator Name Role Phone Wally Thompson MD Primary Care Provider [phone] Allergies Active Allergy Reactions Criticality Noted Date [...] Procedure Name Priority Date/Time Associated Diagnosis Comments GOVERNMENT AFFAIRS RESEARCHER THIN PREP PAP SCREEN IMAGED Routine 03/12/2020 9:00 AM DIRECTOR OF MATERIALS from Last 3 Months or Most Recently Relevant to Health Maintenance Results * GOVERNMENT AFFAIRS RESEARCHER THIN PREP PAP SCREEN IMAGED (03/12/2020 9:00 AM DIRECTOR OF MATERIALS) Case Report Gynecologic Cytology Report ? Case: [id number] ? Authorizing Provider: ??Unknown, Doctor ?Collected: ? 03/12/2020 0900 ? Ordering Location: ? [facility] ?Received: ?03/12/2020 1708 ? First Screen: ?Divine [place]y ? Specimen: ?GOVERNMENT AFFAIRS RESEARCHER ThinPrep Vial Screening, Cervical/Vaginal ? 03/22/2020 3:39 PM DIRECTOR OF MATERIALS [facility] INTERPRETATION/ RESULT NEGATIVE FOR INTRAEPITHELIAL LESION OR MALIGNANCY (NIL) (none) 03/22/2020 3:39 PM DIRECTOR OF MATERIALS [facility] IMEN ADEQUACY Satisfactory for evaluation Endocervical component present 03/22/2020 3:39 PM DIRECTOR OF MATERIALS [facility] HPV REQUEST HPV and PAP 03/22/2020 3:39 PM DIRECTOR OF MATERIALS [facility] Menstrual Status Postmenopausal 03/22/2020 3:39 PM DIRECTOR OF MATERIALS [facility] Additional Information 03/22/2020 3:39 PM DIRECTOR OF MATERIALS [facility] Comment: Interpreted at [facility] - [address], [place] [address] Automated Review Successful 03/22/2020 3:39 PM DIRECTOR OF MATERIALS [facility] Comment:Specimen processed s uccessfully by automated marketing compliance manager device, ThinPrep Imaging System, [employer] ANCILLARY TESTING GOVERNMENT AFFAIRS RESEARCHER HPV Ordered, Please see separate report 03/22/2020 3:39 PM DIRECTOR OF MATERIALS [facility] Note The pap test is a screening technique, not a diagnostic procedure. It is used primarily to screen for squamous cancers and precursor lesions. Published studies have shown that it is subject to both false negative and false positive results. The pap test should not be used as the sole means to diagnose or exclude pre-malignant and malignant lesions. 03/22/2020 3:39 PM DIRECTOR OF MATERIALS [facility] Other (Cervical/Vagina l) 03/12/2020 9:00 AM DIRECTOR OF MATERIALS 03/12/2020 5:08 PM DIRECTOR OF MATERIALS Doctor Unknown PATHOLOGY/CYTOLOGY [facility] [address] [place] [address], from Last 3 Months or Most Recently Relevant to Health Maintenance Advance Directives * Full Code (Latest Code Status on File) Date Activated Date Inactivated Comments 01/18/2016 9:18 AM 01/19/2016 2:14 PM Care Teams Commercial Front Load Operator Relationship Specialty Start Date End Date Wally [place] MD [address] [place] [address] PCP - General Family Practice 03/31/22
--- OUTSIDE RECORDS SUMMARY | 2024-01-23 13:31 | XMS_ITS | Referral Summary ---
Author Organization [place] Address [address] [place] [address] Care Team Providers Care Mule Operator Name Role Phone [facility] Primary Care Provider Allergies Active Allergy Reactions [...] of Treatment Not on file Care Teams Mule Operator Relationship Specialty Start Date End Date Clinic - [facility] [address] [address] PCP - General Internal Medicine 07/11/19
--- OUTSIDE RECORDS SUMMARY | 2024-01-23 13:31 | XMS_ITS | Clinical Summary ---
Author Organization [place] Address [address] [place] [address] Care Team Providers Care Customer Support Agent Name Role Phone [facility] Primary Care Provider Allergies Active Allergy [...] of Treatment Not on file Care Teams Customer Support Agent Relationship Specialty Start Date End Date Clinic - [place] [address] [address] PCP - General Internal Medicine 07/11/19
--- OUTSIDE RECORDS SUMMARY | 2024-01-23 13:31 | XMS_ITS | Continuity of Care Document ---
Author Organization [facility] Address [address] [place] [address] Phone Care Team Providers Care Hand Knitter Name Role Phone Issac Guaman DO Unavailable [...] 11:29:00 35.70 % 25.00-50.00 Final Lymphocyte # [facility]03-31 11:29:00 1.7 K/uL 1.0-4.0 Final Monocytes # [facility]03-31 11:29:00 0.35 K/uL 0.20-1.00 Final Monocytes % [...] suspected, a test for HCV RNA(test code 96274) is suggested. For additional information please refer tohttp://educatio nRetailVectordiagnostic Chapman Instruments/faq/FOE72g2 (This link is being provided for informational/edu [...] suspected, a test for HCV RNA(test code 51355) is suggested. For additional information please refer tohttp://educatio nAPS/faq/HHD50j6 (This link is being provided for informational/edu [...] [facility] , [address], [place], [address], [place] tel:[phone] [facility] , Musculoskele jana pain (chief complaint) Raynaud's syndrome without gangreneGene ralized muscle weaknessAbno rmal immunologica l finding in serum, unspecifiedI diopathic neuropathyEn counter for screening for osteoporosis MyalgiaPain in joint 3 Deniz Davenport. [facility] [address], [place], [address], [place]. tel:[phone] Referring Provider: Issac Monae, [facility] [address] [facility] [address], [place], [address]. tel:[phone] Family History Family Member Type Diagnosis Age At Onset No Information Payers Payer name Insurance type Covered green party ID Kathleen cortes(s) [employer] [id number] Social History Type Description Quantity Date Captured [...] Mental Status Date Cognitive Assessment Orientation - [place] ed to time, place, person, situation. Patient Care Teams Name Effective Dates (start - stop) Status Members No Information
== END 2024-01-23 13:26 | disposition home or self-care (01) ==
PROVIDERS: PCP Family Medicine; Visit Provider Obstetrics & Gynecology
DX: Z01.419 Encounter for gynecological examination (general) (routine) without abnormal findings (principal); E78.5 Hyperlipidemia, unspecified; R68.82 Decreased libido; R79.89 Other specified abnormal findings of blood chemistry
CPT/HCPCS: 80061; 84270; 84402; 84403

== ENCOUNTER 2024-02-01 14:58 | Outpatient (CLI) | payer OTHER, SELFPAY ==
--- OUTSIDE RECORDS SUMMARY | 2024-02-01 15:01 | XMS_ITS | Continuity of Care Document ---
Author Organization [facility] Address [address] [place] [address] Phone Care Team Providers Care Apigee Developer Name Role Phone Issac Guaman DO Unavailable [...] 11:29:00 35.70 % 25.00-50.00 Final Lymphocyte # [facility]03-31 11:29:00 1.7 K/uL 1.0-4.0 Final Monocytes # [facility]03-31 11:29:00 0.35 K/uL 0.20-1.00 Final Monocytes % [...] suspected, a test for HCV RNA(test code 54772) is suggested. For additional information please refer tohttp://educatio nM Lite Solutiondiagnostic Data Maid/faq/COJ38r0 (This link is being provided for informational/edu [...] suspected, a test for HCV RNA(test code 91603) is suggested. For additional information please refer tohttp://educatio nI-Pulse/faq/UAW58i6 (This link is being provided for informational/edu [...] [facility] , [address], [place], [address], [place] tel:[phone] [facility] , Musculoskele jana pain (chief complaint) Raynaud's syndrome without gangreneGene ralized muscle weaknessAbno rmal immunologica l finding in serum, unspecifiedI diopathic neuropathyEn counter for screening for osteoporosis MyalgiaPain in joint 3 Deniz Davenport. [facility] [address], [place], [address], [place]. tel:[phone] Referring Provider: Issac Monae, [facility] [address] [facility] [address], [place], [address]. tel:[phone] Family History Family Member Type Diagnosis Age At Onset No Information Payers Payer name Insurance type Covered alliance party ID Kathleen cortes(s) [employer] [id number] Social History Type Description Quantity Date Captured [...] Mental Status Date Cognitive Assessment Orientation - [place] ed to time, place, person, situation. Patient Care Teams Name Effective Dates (start - stop) Status Members No Information
--- OUTSIDE RECORDS SUMMARY | 2024-02-01 15:02 | XMS_ITS | Referral Summary ---
Author Organization [place] Address [address] [place] [address] Care Team Providers Care Towel Hemmer Name Role Phone [facility] Primary Care Provider Allergies Active Allergy [...] of Treatment Not on file Care Teams Towel Hemmer Relationship Specialty Start Date End Date [facility] [address] [address] PCP - General Internal Medicine 07/11/19
--- OUTSIDE RECORDS SUMMARY | 2024-02-01 15:02 | XMS_ITS | Clinical Summary ---
Author Organization [place] Address [address] [place] [address] Care Team Providers Care Tax Audit Manager Name Role Phone [facility] Primary Care Provider Allergies Active Allergy Reactions [...] of Treatment Not on file Care Teams Tax Audit Manager Relationship Specialty Start Date End Date [facility] - [facility] [address] [address] PCP - General Internal Medicine 07/11/19
--- OUTSIDE RECORDS SUMMARY | 2024-02-01 15:02 | XMS_ITS | Patient Health Record ---
Author Organization [facility] Address [address] [id number] Care Team Providers Care Student Services Dean Name Role Phone [facility], PROVIDER Primary Care Provider Unavailab le Allergies Allergen (clinical drug ingredient) Drug/Non Drug Allergy documented on EMR Reaction Allergy Type Onset Date Status metronidazole Flagyl hives Drug Allergy Act juan Reason For Referral No Information Medications Medication SIG (Take, Route, Frequency, Duration) Notes [...] a day as needed for 25 Active Immunizations Vaccine Route Administration Date Status Comme nts Influenza 3 Years and above WITH Preservative IM Intramuscular 03/11/2007 Administered Influenza 3 Years and above WITH Preservative IM Intramuscular 03/23/2008 Administered Influenza 3 Years and above WITH Preservative IM Intramuscular 04/01/2009 Administered Influenza H1N1 Injectable IM Intramuscular 04/01/2009 Admi nistered Tdap (Adacel 11-64 yrs) IM Intramuscular 03/04/2009 Admini stered Social History Tobacco Use: Social History Observation Description Date Details (start date - stop date) Never Smoker NA - NA Tobacco Status Question Answer Notes I am: never smoker Problems Problem Type SNOMED Code ICD Code Onset Dates Problem Status W/U Status Risk Notes Problem 22895213 Anxiety (F41.9) Active confirmed Problem 209897565 Mixed hyperlipidemia (E78.2) Active confirmed Problem 125060973 Major depressive disorder, recurrent episode, moderate (F33.1) Active confirmed Problem 611585628 History of hyperglycemia (Z86.39) Active confirmed Problem 96943859 Muscle twitching (R25.3) Active confirmed Problem 152143812 Severe major depression (F32.2) Active confirmed Problem 042261137 History of cardi ac arrhythmia (Z86.79) Active confirmed Plan Of Treatment No Information Insurance Providers Payer Name Payer Address Payer Phone Subscriber Number Group Number Insured Name Patient Relationship to Insured Coverage Start Date Coverage End Date [employer] [address] [place] [address] [id number] Liset Cool Self - patient is the insured 4 Medical (General) History Medical History History ICD Code DOFV 10-21-83 Gestational diabetes Surgical History Surgery Date(Month/Year) Right patellar hardware removal 04/2005 D&C (after miscarriage) 10/2004 Right patellar fracture 03/2003 , tubial with last C section 2006.2008 Bilat otoplasty 1998 SVT ablation 2015 Uterine ablation 06/2014 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
--- OUTSIDE RECORDS SUMMARY | 2024-02-01 15:02 | XMS_ITS | Clinical Summary ---
Author Organization [email or web address] [facility] Address [place], [place] [address] Care Team Providers Care Oleomargarine Maker Name Role Phone Wally Thompson MD Primary Care Provider [phone] Allergies Active Allergy Reactions Criticality Noted Date [...] 2) 10/10/2023 COVID-19 vaccine series ( - 2023-25 season) 2023 Influenza for age 50-64 12/30/2023 01/28/2015 Pneumococcal series for age 6-64 Aged Out No longer eligible b ased on patient's age to complete this topic Procedures Procedure Name Priority Date/Time Associated Diagnosis Comments FINANCIAL SERVICES SPECIALIST THIN PREP PAP SCREEN IMAGED Routine 03/12/2020 9:00 AM EDGER FEEDER from Last 3 Months or Most Recently Relevant to Health Maintenance Results * FINANCIAL SERVICES SPECIALIST THIN PREP PAP SCREEN IMAGED (03/12/2020 9:00 AM EDGER FEEDER) Case Report Gynecologic Cytology Report ? Case: [id number] ? Authorizing Provider: ??Unknown, Doctor ?Collected: ? 03/12/2020 0900 ? Ordering Location: ? [facility] ?Received: ?03/12/2020 1708 ? First Screen: ?[place] ? Specimen: ?FINANCIAL SERVICES SPECIALIST ThinPrep Vial Screening, Cervical/Vaginal ? 03/22/2020 3:39 PM EDGER FEEDER [facility] INTERPRETATION/ RESULT NEGATIVE FOR INTRAEPITHELIAL LESION OR MALIGNANCY (NIL) (none) 03/22/2020 3:39 PM EDGER FEEDER [facility] IMEN ADEQUACY Satisfactory for evaluation Endocervical component present 03/22/2020 3:39 PM EDGER FEEDER [facility] HPV REQUEST HPV and PAP 03/22/2020 3:39 PM EDGER FEEDER [facility] Menstrual Status Postmenopausal 03/22/2020 3:39 PM EDGER FEEDER [facility] Additional Information 03/22/2020 3:39 PM EDGER FEEDER [facility] Comment: Interpreted at [facility] - [address], [place] [address] Automated Review Successful 03/22/2020 3:39 PM EDGER FEEDER [facility] Comment:Specimen processed s uccessfully by automated ore trimmer device, ThinPrep Imaging System, [employer] ANCILLARY TESTING FINANCIAL SERVICES SPECIALIST HPV Ordered, Please see separate report 03/22/2020 3:39 PM EDGER FEEDER [facility] Note The pap [...] pre-malignant and malignant lesions. 03/22/2020 3:39 PM EDGER FEEDER [facility] Other (Cervical/Vagina l) 03/12/2020 9:00 AM EDGER FEEDER 03/12/2020 5:08 PM EDGER FEEDER Doctor Unknown PATHOLOGY/CYTOLOGY [facility] [address] [place] [address], from Last 3 Months or Most Recently Relevant to Health Maintenance Advance Directives * Full Code (Latest Code Status on File) Date Activated Date Inactivated Comments 01/18/2016 9:18 AM 01/19/2016 2:14 PM Care Teams Oleomargarine Maker Relationship Specialty Start Date End Date Wally Thompson MD [address] [place] [address] PCP - General Family Practice 03/31/22
--- NOTE | 2024-02-01 15:30 | CRLHL7_ITS ---
For Patients: As a result of the Century Cures Act, medical imaging exams and procedure reports are released immediately into your electronic medical record. You may view this report before your referring provider. If you have questions, please contact your health care provider. Indication: Headaches. Technique: Noncontrast sagittal T1, axial FLAIR, T2, diffusion weighted sequences are provided. Compared to prior study from October 03, 2022 Findings: The ventricles, sulci and gyri are normal size, shape and contour for age. The midline structures are centrally located with no evidence of shift. There are no suspicious intra or extra-axial fluid collections. No region of restricted diffusion. Expected flow voids in the cavernous carotids and basilar artery. Stable solitary focus of signal abnormality within the right centrum semiovale that is nonspecific. Globes bilaterally appear within normal limits. Impression: 1. Stable, no radiographic evidence of acute intracranial abnormalities. 2. Stable solitary focus of signal abnormality within the right centrum semiovale that is non-specific. Differential considerations include changes related to diabetes, hypertension, collagen vascular disease or migranous headaches. Dictated by Manohar Ro MD @ 02/02/2024 1:05:24 PM (Electronically Signed)
== END 2024-02-01 14:59 | disposition home or self-care (01) ==
LOC: MRI 15:00
PROVIDERS: PCP Family Medicine; Visit Provider Family Medicine
DX: R51.9 Headache, unspecified (principal); R41.3 Other amnesia
CPT/HCPCS: 70551